=== PATIENT | male | born 1985 | race Caucasian/White ===

== ENCOUNTER 2021-02-13 16:42 | Inpatient (IN) | payer OTHER ==
[~2021-02-13] VITALS: Ht 175.3 cm; Wt 75.5 kg
[~2021-02-13 16:42] MED LIST: ATARAX,VISTARIL50 MG PO; NEURONTIN300 MG PO; ONDANSETRON HYDR4 M1 PO
[2021-02-13 16:50] VITALS: BP 143/77
[2021-02-13 17:51] LABS: BASO # 0.1 10*3/uL (0.0-0.1); BASO % 0.8 % (0.0-1.0); EOS # 0.1 10*3/uL (0.0-0.4); EOS % 0.8 % (1.0-4.0); HEMATOCRIT 40.7 % (42.0-52.0); LYMPH # 1.8 10*3/uL (1.3-4.4); LYMPH % 20.2 % (27.0-41.0); MEAN CELL VOLUME 86.8 fl (80.0-94.0); MEAN CORPUSCULAR HGB 29.4 pg (27.0-31.0); MEAN CORPUSCULAR HGB CONC 33.9 g/dl (33.0-37.0); MEAN PLATELET VOLUME 10.2 fl (9.6-12.3); MONO # 0.5 10*3/uL (0.1-1.0); MONO % 5.3 % (3.0-9.0); NEUT # 6.4 10*3/uL (2.3-7.9); NEUT % 72.6 % (47.0-73.0); PLATELET COUNT AUTOMATED 311 10*3/uL (130-400); RED BLOOD COUNT 4.69 10*6/uL (4.50-5.90); RED CELL DISTRI WIDTH 11.9 % (0-14.5); WHITE BLOOD COUNT 8.8 10*3/uL (4.8-10.8)
[2021-02-13 18:02] LABS: BILIRUBIN Negative (Negative); BLOOD Negative (Negative); CLARITY Clear (Clear); COLOR Yellow (Yellow); GLUCOSE Negative (Negative); KETONE Negative (Negative); LEUKO ESTERASE Negative (Negative); NITRITE Negative (Negative); SPECIFIC GRAVITY <= 1.005 (1.001-1.030); UROBILINOGEN 0.2 E.U./dl (0.0-1.0)
[2021-02-13 18:03] LABS: INTERNATIONAL NORM RATIO 1.1 (2.0-3.5)
[2021-02-13 18:12] LABS: ALBUMIN 4.3 gm/dl (3.1-4.5); ALKALINE PHOSPHATASE 95 U/L (45-117); BUN 10 mg/dl (7-24); CHLORIDE 104 mmol/L (98-107); CREATININE 0.98 mg/dL (0.70-1.30); ETHYL ALCOHOL < 3.0 mg/dl (<3); POTASSIUM 3.4 mmol/L (3.5-5.1); SGOT/AST 20 IU/L (3-35); SGPT/ALT 23 U/L (12-78); SODIUM 138 mmol/L (136-145); TOTAL PROTEIN 8.5 gm/dL (6.4-8.2)
[2021-02-13 18:12] LABS: URINE AMPHETAMINES < 1000 (1000ng/ml); URINE BARBITURATES < 200 (200ng/ml); URINE BENZODIAZEPINES < 200 (200ng/ml); URINE CANNABINOIDS (THC) < 50 (50ng/ml); URINE COCAINE < 300 (300ng/ml); URINE METHADONE < 300 (300ng/ml); URINE OPIATES < 300 (300ng/ml); URINE PHENCYCLIDINE < 25 (25ng/ml)
[2021-02-13 18:15] LABS: BACTERIA TRACE; RBC 0-2 rbc/hpf (0-2); WBC 0-2 wbc/hpf (0-5)
[2021-02-13 20:00] VITALS: BP 125/67
[2021-02-13 23:56] VITALS: BP 106/56
[2021-02-14 08:00] VITALS: BP 104/59
[2021-02-14 12:00] VITALS: BP 110/55
[2021-02-14 16:00] VITALS: BP 119/57
[2021-02-14 20:00] VITALS: BP 156/74
[2021-02-15] VITALS: BP 106/53
[2021-02-15 08:00] VITALS: BP 138/68
[2021-02-15 12:00] VITALS: BP 133/72
[2021-02-15 16:00] VITALS: BP 133/65
[2021-02-15 20:00] VITALS: BP 131/76
[2021-02-16] VITALS: BP 134/65
[2021-02-16 08:00] VITALS: BP 109/50
== END 2021-02-16 11:00 | disposition home or self-care (01) | DRG 897 ==
LOC: 5E 16:42
PROVIDERS: Internal Medicine; ADMIT Internal Medicine; ATTEND Internal Medicine
DX: F11.23 Opioid dependence with withdrawal (principal); R51.9 Headache, unspecified; R00.1 Bradycardia, unspecified; F17.210 Nicotine dependence, cigarettes, uncomplicated; Z79.899 Other long term (current) drug therapy